=== PATIENT | male | born 1985 | race African-American/Black ===

== ENCOUNTER 2018-06-27 05:55 | Emergency (ER) | payer MEDICAID, OTHER ==
[~2018-06-27] VITALS: Ht 177.8 cm; Wt 81.0 kg
[2018-06-27] MEDS ORDERED: KETOROLAC 30MG/ML VIAL IV STA (07:07)
[2018-06-27 07:21] VITALS: BP 125/96
[2018-06-27 07:40] LABS: BASOPHILS % 0.8 % (0.0-2.0); EOSINOPHILS % 0.9 % (0.0-5.0); HEMATOCRIT. 43.5 % (42.0-52.0); HEMOGLOBIN. 15.1 g/dL (14.0-18.0); LYMPHOCYTES % 28.9 % (20.0-50.0); MEAN CORPUSCULAR HEMOGLOBIN 32.3 pg (28.0-32.0); MEAN CORPUSCULAR VOLUME 93.3 fL (80.0-94.0); MEAN PLATELET VOLUME 10.5 fl (7.4-10.4); MONOCYTES % 6.9 % (2.0-8.0); NEUTROPHILS % 62.5 % (40.0-76.0); PLATELET 219 x1000/uL (130-400); RED BLOOD CELL COUNT 4.66 mill/uL (4.7-6.1); RED CELL DISTRIBUTION WIDTH 12.6 % (11.6-14.6)
[2018-06-27 07:48] LABS: D-DIMER 0.21 mg/L FEU (<0.50)
[2018-06-27 07:50] LABS: CHLORIDE 111 mEq/L (98-107)
[2018-06-27 09:23] LABS: *AMPHETAMINES SCREEN URINE NEGATIVE (NEGATIVE); *BARBITURATES SCREEN URINE NEGATIVE (NEGATIVE); *BENZODIAZEPINES SCREEN URINE NEGATIVE (NEGATIVE); *COCAINE SCREEN URINE NEGATIVE (NEGATIVE); CANNABINOID URINE SCREEN PRESUMTIVE POSITIVE (NEGATIVE); METHADONE URINE SCREEN NEGATIVE (NEGATIVE); OPIATES URINE SCREEN NEGATIVE (NEGATIVE); PHENCYCLIDINE URINE SCREEN NEGATIVE (NEGATIVE)
[2018-06-27] MEDS ORDERED: SODIUM BICARBONATE 4% (2.4MEQ) 5ML VIAL IV ONE (09:40)
== END 2018-06-27 10:06 | disposition left against medical advice (07) ==
LOC: ER 05:55
DX: R07.89 Other chest pain (principal); F41.9 Anxiety disorder, unspecified; F12.10 Cannabis abuse, uncomplicated
CPT/HCPCS: 36415; 71045; 80053; 80305; 83880; 84484; 85025; 85379; 85610; 93005; 96374; 99285; J1885; J3490

== ENCOUNTER 2019-02-28 10:04 | Emergency (ER) | payer SELFPAY ==
[~2019-02-28] VITALS: Ht 188 cm; Wt 85.0 kg
[2019-02-28] MEDS ORDERED: SODIUM CHLORIDE 0.9% 1,000 ML IV ONE (10:28)
[2019-02-28] MEDS ORDERED: ACETAMINOPHEN 325MG TABLET PO STA (10:28)
[2019-02-28] MEDS ORDERED: ONDANSETRON HCL 4MG/2ML INJ IV STA (10:28)
[2019-02-28] MEDS ORDERED: KETOROLAC 30MG/ML VIAL IV STA (10:28)
[2019-02-28 10:59] LABS: BASOPHILS % 0.4 % (0.0-2.0); EOSINOPHILS % 0.2 % (0.0-5.0); HEMATOCRIT. 47.1 % (42.0-52.0); HEMOGLOBIN. 15.6 g/dL (14.0-18.0); LYMPHOCYTES % 10.1 % (20.0-50.0); MEAN CORPUSCULAR HEMOGLOBIN 31.4 pg (28.0-32.0); MEAN CORPUSCULAR VOLUME 94.8 fL (80.0-94.0); MEAN PLATELET VOLUME 11.2 fl (7.4-10.4); MONOCYTES % 5.7 % (2.0-8.0); NEUTROPHILS % 83.6 % (40.0-76.0); PLATELET 241 x1000/uL (130-400); RED BLOOD CELL COUNT 4.97 mill/uL (4.7-6.1); RED CELL DISTRIBUTION WIDTH 13.3 % (11.6-14.6)
[2019-02-28 11:06] LABS: CHLORIDE 108 mEq/L (98-107)
[2019-02-28 12:36] LABS: CLARITY URINE CLEAR (CLEAR); COLOR URINE YELLOW (YELLOW); KETONES URINE NEGATIVE (NEGATIVE); LEUKOCYTE ESTERASE URINE NEGATIVE (NEGATIVE); NITRITE URINE NEGATIVE (NEGATIVE); OCCULT BLOOD URINE 1+ (NEGATIVE); PH URINE 5.5 (4.5-8.0); PROTEIN URINE TRACE (NEGATIVE); UROBILINOGEN URINE 0.2 E.U./dL (0.2-1.0)
[2019-02-28] MEDS ORDERED: IOHEXOL-300 100 ML BOTTLE ONE (13:00)
[2019-02-28] MEDS ORDERED: ONDANSETRON HCL 4MG/2ML INJ IV ONE (13:15)
[2019-02-28 14:19] VITALS: BP 113/58
== END 2019-02-28 14:21 | disposition home or self-care (01) ==
LOC: ER 10:04
DX: R10.9 Unspecified abdominal pain (principal); R11.10 Vomiting, unspecified; R79.89 Other specified abnormal findings of blood chemistry; F41.9 Anxiety disorder, unspecified; J45.909 Unspecified asthma, uncomplicated; F17.210 Nicotine dependence, cigarettes, uncomplicated
CPT/HCPCS: 36415; 74177; 80053; 81003; 83690; 85025; 85610; 96361; 96374; 96375; 96376; 99284; J1885; J2405; J7030; Q9967; Z7610

== ENCOUNTER 2020-07-17 05:41 | Emergency (ER) | payer SELFPAY ==
[~2020-07-17] VITALS: Ht 180.3 cm; Wt 85.0 kg
[2020-07-17] MEDS ORDERED: IBUPROFEN 600MG TABLET PO ONE (06:45)
[2020-07-17 08:30] VITALS: BP 120/68
== END 2020-07-17 08:32 | disposition home or self-care (01) ==
LOC: ER 05:49
DX: S62.111A Displaced fracture of triquetrum [cuneiform] bone, right wrist, initial encounter for closed fracture (principal); F41.9 Anxiety disorder, unspecified; J45.909 Unspecified asthma, uncomplicated; W22.03XA Walked into furniture, initial encounter; Y93.89 Activity, other specified; Y92.9 Unspecified place or not applicable
CPT/HCPCS: 29125; 73130; 99283

== ENCOUNTER 2021-02-14 11:44 | Inpatient (IN) | payer SELFPAY ==
[~2021-02-14] VITALS: Ht 180.3 cm; Wt 85.5 kg
[2021-02-14] MEDS ORDERED: NOREPINEPHRINE 8MG/250ML PMX 250 ML IV STA (11:50)
[2021-02-14] MEDS ORDERED: VANCOMYCIN 1 G PREMIX 200 ML IV ONE (12:00)
[2021-02-14] MEDS ORDERED: PIPERACILLIN/TAZ 3.375G PREMIX 50 ML IV ONE (12:00)
[2021-02-14] MEDS ORDERED: SODIUM CHLORIDE 0.9% 1,000 ML IV ONE ×2 (12:00→12:15)
[2021-02-14] MEDS ORDERED: ONDANSETRON HCL 4MG/2ML INJ IV STA (12:01)
[2021-02-14] MEDS ORDERED: FENTANYL CITRATE/PF 50MCG/ML 2ML VIAL IV ONE ×2 (12:15→14:00)
[2021-02-14 12:29] LABS: BASOPHILS % 0.3 % (0.0-2.0); EOSINOPHILS % 0.7 % (0.0-5.0); HEMATOCRIT. 45.6 % (42.0-52.0); HEMOGLOBIN. 15.5 g/dL (14.0-18.0); LYMPHOCYTES % 7.1 % (20.0-50.0); MEAN CORPUSCULAR HEMOGLOBIN 32.5 pg (28.0-32.0); MEAN CORPUSCULAR VOLUME 95.3 fL (80.0-94.0); MEAN PLATELET VOLUME 9.8 fl (7.4-10.4); MONOCYTES % 5.2 % (2.0-8.0); NEUTROPHILS % 86.7 % (40.0-76.0); PLATELET 257 x1000/uL (130-400); RED BLOOD CELL COUNT 4.78 mill/uL (4.7-6.1); RED CELL DISTRIBUTION WIDTH 13.1 % (11.6-14.6)
[2021-02-14 12:37] LABS: CHLORIDE 109 mEq/L (98-107)
[2021-02-14 12:41] LABS: INR 0.9; PROTHROMBIN TIME 10.1 sec (9.6-11.0)
[2021-02-14 12:43] LABS: ETHANOL BLOOD < 10 mg/dL
[2021-02-14] MEDS ORDERED: LEVOFLOXACIN 500MG PREMIX 100 ML IV ONE (13:45)
[2021-02-14] MEDS ORDERED: METRONIDAZOLE 500 MG PREMIX 100 ML IV ONE (13:45)
[2021-02-14] MEDS ORDERED: DEXT 5%/0.9% NACL 1,000 ML IV ONE (14:00)
[2021-02-14] MEDS ORDERED: DIATR MEGLU/DIATRIZOATE SOLN 30ML ONE (14:51)
[2021-02-14] MEDS ORDERED: IOHEXOL-300 100 ML BOTTLE ONE (14:52)
[2021-02-14] MEDS ORDERED: DIATR MEGLU/DIATRIZOATE SOLN 120ML ONE (15:18)
[2021-02-14] MEDS ORDERED: IPRATROPIUM/ALBUTEROL 0.5-3(2.5)MG/3ML NEB HHN PRN (16:30)
[2021-02-14] MEDS ORDERED: CLONIDINE 0.1MG TABLET PO PRN (16:30)
[2021-02-14] MEDS ORDERED: DIPHENHYDRAMINE 50MG/ML VIAL IV PRN (16:30)
[2021-02-14] MEDS: SODIUM CHLORIDE 0.9% 1,000 ML IV SCH ×2 (16:45→23:34)
[2021-02-14] MEDS: ONDANSETRON HCL 4MG/2ML INJ IV PRN (18:39)
[2021-02-14] MEDS: MORPHINE SULFATE 2 MG/ML CPJ (NOT FOR IM USE) IV PRN (18:40)
[2021-02-14] MEDS ORDERED: VANCOMYCIN 1 G PREMIX 200 ML IV NR (19:00)
[2021-02-14 21:38] LABS: CLARITY URINE CLEAR (CLEAR); COLOR URINE YELLOW (YELLOW); KETONES URINE NEGATIVE (NEGATIVE); LEUKOCYTE ESTERASE URINE NEGATIVE (NEGATIVE); NITRITE URINE NEGATIVE (NEGATIVE); OCCULT BLOOD URINE NEGATIVE (NEGATIVE); PROTEIN URINE NEGATIVE (NEGATIVE); SPECIFIC GRAVITY URINE 1.019 (1.005-1.030); UROBILINOGEN URINE 0.2 E.U./dL (0.2-1.0)
[2021-02-14 21:46] LABS: *AMPHETAMINES SCREEN URINE PRESUMTIVE POSITIVE (NEGATIVE)
[2021-02-14 21:47] LABS: *BARBITURATES SCREEN URINE NEGATIVE (NEGATIVE); *BENZODIAZEPINES SCREEN URINE NEGATIVE (NEGATIVE); CANNABINOID URINE SCREEN PRESUMTIVE POSITIVE (NEGATIVE); METHADONE URINE SCREEN NEGATIVE (NEGATIVE); OPIATES URINE SCREEN PRESUMTIVE POSITIVE (NEGATIVE); PHENCYCLIDINE URINE SCREEN NEGATIVE (NEGATIVE)
[2021-02-14 21:49] LABS: *COCAINE SCREEN URINE NEGATIVE (NEGATIVE)
[2021-02-14] MEDS ORDERED: METRONIDAZOLE 500 MG PREMIX 100 ML IV SCH (22:00)
[2021-02-14 22:06] VITALS: BP 128/62
[2021-02-14 22:07] VITALS: BP 128/68
[2021-02-14] MEDS ORDERED: T3 PO (22:32)
[2021-02-14] MEDS: METRONIDAZOLE 500 MG PREMIX 100 ML IV SCH (23:34)
[2021-02-15 00:30] VITALS: BP 130/69
[2021-02-15 03:44] VITALS: BP 118/68
[2021-02-15] MEDS: METRONIDAZOLE 500 MG PREMIX 100 ML IV SCH ×3 (06:07→23:08)
[2021-02-15 06:51] LABS: BASOPHILS % 0.2 % (0.0-2.0); HEMATOCRIT. 39.9 % (42.0-52.0); HEMOGLOBIN. 13.4 g/dL (14.0-18.0); LYMPHOCYTES % 16.8 % (20.0-50.0); MEAN CORPUSCULAR HEMOGLOBIN 31.5 pg (28.0-32.0); MEAN PLATELET VOLUME 10.3 fl (7.4-10.4); PLATELET 251 x1000/uL (130-400); RED BLOOD CELL COUNT 4.25 mill/uL (4.7-6.1)
[2021-02-15 07:06] LABS: CHLORIDE 112 mEq/L (98-107)
[2021-02-15 07:14] LABS: LDL CHOLESTEROL 104 mg/dL (5-100)
[2021-02-15 07:17] LABS: HDL CHOLESTEROL 44 mg/dL (40-59)
[2021-02-15 10:00] VITALS: BP 113/74
[2021-02-15] MEDS: ONDANSETRON HCL 4MG/2ML INJ IV PRN (10:23)
[2021-02-15] MEDS: MORPHINE SULFATE 2 MG/ML CPJ (NOT FOR IM USE) IV PRN ×2 (10:24→17:39)
[2021-02-15] MEDS: SODIUM CHLORIDE 0.9% 1,000 ML IV SCH (16:17)
[2021-02-15] MEDS ORDERED: LEVOFLOXACIN 500MG PREMIX 100 ML IV SCH ×2 (16:30→17:30)
[2021-02-15 17:28] VITALS: BP 134/90
[2021-02-15 20:00] VITALS: BP 123/72
[2021-02-16] VITALS: BP 119/63
[2021-02-16] MEDS: MORPHINE SULFATE 2 MG/ML CPJ (NOT FOR IM USE) IV PRN ×3 (01:08→23:08)
[2021-02-16 03:58] VITALS: BP 105/57
[2021-02-16] MEDS: METRONIDAZOLE 500 MG PREMIX 100 ML IV SCH ×3 (06:00→23:08)
[2021-02-16] MEDS: SODIUM CHLORIDE 0.9% 1,000 ML IV SCH ×2 (06:09→18:45)
[2021-02-16 20:00] VITALS: BP 116/69
[2021-02-16] MEDS: ONDANSETRON HCL 4MG/2ML INJ IV PRN (23:14)
[2021-02-17] VITALS: BP 116/87
[2021-02-17 04:00] VITALS: BP 121/73
[2021-02-17] MEDS: SODIUM CHLORIDE 0.9% 1,000 ML IV SCH (06:28)
[2021-02-17] MEDS: METRONIDAZOLE 500 MG PREMIX 100 ML IV SCH (06:28)
[2021-02-17 06:44] LABS: BASOPHILS % 0.5 % (0.0-2.0); HEMATOCRIT. 40.2 % (42.0-52.0); HEMOGLOBIN. 13.7 g/dL (14.0-18.0); LYMPHOCYTES % 35.8 % (20.0-50.0); MEAN CORPUSCULAR HEMOGLOBIN 32.5 pg (28.0-32.0); MEAN CORPUSCULAR VOLUME 95.5 fL (80.0-94.0); MEAN PLATELET VOLUME 10.5 fl (7.4-10.4); MONOCYTES % 9.2 % (2.0-8.0); NEUTROPHILS % 52.5 % (40.0-76.0); PLATELET 232 x1000/uL (130-400); RED BLOOD CELL COUNT 4.21 mill/uL (4.7-6.1); RED CELL DISTRIBUTION WIDTH 12.8 % (11.6-14.6)
[2021-02-17 07:00] LABS: CHLORIDE 108 mEq/L (98-107)
[2021-02-17 07:53] VITALS: BP 124/57
[2021-02-17] MEDS ORDERED: POTASSIUM CHLORIDE 20MEQ/PACKET PO SCH (09:00)
[2021-02-17 11:42] VITALS: BP 139/92
[2021-02-17] MEDS ORDERED: METRONIDAZOLE 500MG TABLET PO SCH (14:00)
[2021-02-17] MEDS ORDERED: LEVO500T89 MT (15:09)
[2021-02-17] MEDS ORDERED: METR-167 PO (15:09)
[2021-02-18] MEDS ORDERED: LEVOFLOXACIN 500MG TABLET PO SCH (11:00)
[2021-02-20 04:08] LABS: OVA & PARASITE EXAM Final report (.)
== END 2021-02-17 16:36 | disposition home or self-care (01) | DRG 249 ==
LOC: ER 11:44 → EDBEDREQ 14:34 → EDBEDREQSVC 14:34 → EDBEDREQTM 14:34 → CANRESERV 19:30 → ENRESERV 19:30 → 6WST 21:59 → CANBEDREQ 02-15 01:35
PROVIDERS: ADMIT Internal Medicine; ATTEND Internal Medicine
DX: K52.9 Noninfective gastroenteritis and colitis, unspecified (principal); D53.9 Nutritional anemia, unspecified; F12.90 Cannabis use, unspecified, uncomplicated; F17.200 Nicotine dependence, unspecified, uncomplicated; J45.909 Unspecified asthma, uncomplicated; Z86.61 Personal history of infections of the central nervous system; Z71.51 Drug abuse counseling and surveillance of drug abuser
CPT/HCPCS: 36415; 71045; 74176; 74177; 80048; 80053; 80061; 80305; 80320; 81003; 82270; 83605; 84145; 84443; 84484; 85025; 86850; 86900; 87015; 87045; 87177; 87209; 87427; 87449; 87493; 93005; 93970; 99291; J1956; J2270; J2405; J2543; J3010; J3370; J3490; J7030; J7042; Q9963; Q9967; G0480